=== PATIENT | male | born 1965 | race Hispanic/Latino ===

== ENCOUNTER 2020-08-27 03:57 | Emergency (ER) | payer MEDICARE, OTHER ==
[2020-08-27 04:50] LABS: ALBUMIN 3.6 g/dL (3.5-5.0); BILIRUBIN,TOTAL 0.4 mg/dL (0.2-1.0); POTASSIUM 3.7 mmol/L (3.5-5.1)
[2020-08-27 04:57] LABS: CREATININE 8.4 mg/dL (0.5-1.5)
== END 2020-08-27 06:10 | disposition home or self-care (01) ==
LOC: EDH 03:57
DX: E87.1 Hypo-osmolality and hyponatremia (principal); E11.9 Type 2 diabetes mellitus without complications